=== PATIENT | male | born 1945 | race Caucasian/White ===

== ENCOUNTER → 2016-08-19 | Outpatient (CLI) | payer MEDICARE | END | disposition home or self-care (01) | LOC: RAD 10:03 | PROVIDERS: ATTEND Neurological Surgery | DX: M50.30 Other cervical disc degeneration, unspecified cervical region (principal); M41.84 Other forms of scoliosis, thoracic region; M47.893 Other spondylosis, cervicothoracic region; M47.897 Other spondylosis, lumbosacral region; M48.02 Spinal stenosis, cervical region | CPT/HCPCS: 72050; 72082 ==

== ENCOUNTER → 2016-12-16 | Outpatient (CLI) | payer MEDICARE ==
[~2016-12-16] MED LIST: ASPI-496 PO; LEVO125T5 PO; MAGN400T7 PO; NEBI5TAB2 PO; PRAV20TA2 PO; TAMS0.4C2 PO; [UNRECOGNIZED DRUG - OTHER] PO
[2016-12-16 11:32] LABS: HEMATOCRIT 48.5 % (39.2-51.8); HEMOGLOBIN 16.8 g/dL (13.7-18.0); WHITE BLOOD COUNT 5.9 x10^3/uL (3.4-10)
[2016-12-16 11:43] LABS: ASPARTATE AMINO TRANSFERASE 34 U/L (15-37); BLOOD UREA NITROGEN 19 mg/dL (7-18)
== END | disposition home or self-care (01) ==
LOC: STAR 10:17
PROVIDERS: ATTEND Neurological Surgery
DX: Z01.818 Encounter for other preprocedural examination (principal); M47.892 Other spondylosis, cervical region; R79.1 Abnormal coagulation profile
CPT/HCPCS: 36415; 71020; 80053; 85025; 85610; 85730

== ENCOUNTER 2016-12-24 08:39 | Inpatient (IN) | payer MEDICARE ==
[~2016-12-24] VITALS: Ht 165.1 cm; Wt 86.1 kg
[~2016-12-24 08:39] MED LIST changes: +BACITRACIN 50,000 UNIT ONE; +BUPIVACAINE/PF 0.5% ONE; +EPINEPHRINE 1 MG/ML, 1ML ONE; +THROMBIN 20,000 UNIT VIAL TP ONE
[2016-12-24] MEDS ORDERED: LACTATED RINGERS 1,000 ML IV SCH (09:03)
[2016-12-24 09:05] VITALS: BP 137/87
[2016-12-24] MEDS ORDERED: LIDOCAINE 1%, 2ML SQ PRN (09:30)
[2016-12-24] MEDS ORDERED: ONDANSETRON 2MG/ML, 2ML ONE (11:03)
[2016-12-24] MEDS ORDERED: SUCCINYLCHOLINE 20 MG/ML, 10ML ONE (11:03)
[2016-12-24] MEDS ORDERED: HYDROmorphone 1 MG/ML, 1ML ONE (11:03)
[2016-12-24] MEDS ORDERED: DEXAMETHASONE 4 MG/ML, 5ML ONE (11:03)
[2016-12-24] MEDS ORDERED: FENTANYL PF 250 MCG/5ML ONE (11:03)
[2016-12-24] MEDS ORDERED: LIDOCAINE PF 2%, 5ML ONE (11:03)
[2016-12-24] MEDS ORDERED: ROCURONIUM 10 MG/ML ONE (11:03)
[2016-12-24] MEDS ORDERED: METOCLOPRAMIDE 5 MG/ML, 2ML ONE (11:03)
[2016-12-24] MEDS ORDERED: CEFAZOLIN 1,000 MG ONE (11:03)
[2016-12-24] MEDS ORDERED: PROPOFOL 100 ML ONE (11:27)
[2016-12-24] MEDS ORDERED: ONDANSETRON 2MG/ML, 2ML IVPush PRN (12:00)
[2016-12-24] MEDS ORDERED: LABETALOL 5MG/ML, 20ML IV PRN (12:00)
[2016-12-24] MEDS ORDERED: FENTANYL PF 100 MCG/2ML IV PRN (12:00)
[2016-12-24] MEDS ORDERED: OXYcodone 5 MG/5 ML ORAL.SOL UDC PO PRN (12:00)
[2016-12-24] MEDS ORDERED: ACETAMINOPHEN 325 MG TABLET PO PRN (12:00)
[2016-12-24] MEDS ORDERED: MIDAZOLAM 1 MG/ML, 2ML IV PRN (12:00)
[2016-12-24] MEDS ORDERED: HYDROmorphone 1 MG/ML, 1ML IV PRN (12:00)
[2016-12-24] MEDS ORDERED: hydrALAzine 20 MG/ML, 1ML IV PRN (12:00)
[2016-12-24] MEDS ORDERED: DIAZEPAM 5 MG/ML, 2ML IVPush PRN (12:00)
[2016-12-24] MEDS ORDERED: PROMETHAZINE 25 MG/ML, 1ML IV PRN (12:00)
[2016-12-24] MEDS ORDERED: OXYcodone 5 MG/5 ML ORAL.SOL UDC ONE (14:08)
[2016-12-24] MEDS ORDERED: ACETAMINOPHEN 650 MG/20.3 ML UDC ONE (14:08)
[2016-12-24] MEDS ORDERED: FENTANYL PF 100 MCG/2ML ONE (14:08)
[2016-12-24] MEDS ORDERED: ONDANSETRON 2MG/ML, 2ML IV PRN (16:00)
[2016-12-24] MEDS ORDERED: morphine SULFATE 10 MG/ML, 1ML IV PRN (16:00)
[2016-12-24] MEDS ORDERED: HYDROcodone/APAP 10/325 MG TABLET PO PRN (16:00)
[2016-12-24] MEDS ORDERED: METHOCARBAMOL 1,000 MG in DEXTROSE 5% 100 ML IV ONE (16:00)
[2016-12-24] MEDS ORDERED: DIPHENHYDRAMINE 50 MG/ML, 1ML IM PRN (16:00)
[2016-12-24] MEDS: NS + 20MEQ KCL 1,000 ML IV SCH (16:00)
[2016-12-24] MEDS ORDERED: MAGNESIUM HYDROXIDE 8%, 30ML UDC PO PRN (16:00)
[2016-12-24] MEDS ORDERED: DIPHENHYDRAMINE 50 MG CAPSULE PO PRN (16:00)
[2016-12-24] MEDS ORDERED: CEFAZOLIN PMX 1GM/50ML 50 ML IVPB SCH (16:00)
[2016-12-24] MEDS ORDERED: METHOCARBAMOL 750 MG in DEXTROSE 5% 100 ML IV SCH (16:00)
[2016-12-24] MEDS ORDERED: HYDROcodone/APAP 5/325 TABLET PO PRN (16:00)
[2016-12-24] MEDS ORDERED: BISACODYL 10 MG SUPP PR PRN (16:00)
[2016-12-24] MEDS ORDERED: METHOCARBAMOL 750 MG TABLET PO SCH (16:00)
[2016-12-24] MEDS ORDERED: OXYcodone/APAP 10/325MG TABLET PO PRN (16:30)
[2016-12-24] MEDS: CEFAZOLIN PMX 1GM/50ML 50 ML IVPB SCH (18:29)
[2016-12-24 20:06] VITALS: BP 118/73
[2016-12-24] MEDS ORDERED: PRAVASTATIN 20 MG TABLET PO SCH (21:00)
[2016-12-24] MEDS ORDERED: ZOLPIDEM 5MG TABLET PO PRN (21:00)
[2016-12-24 23:57] VITALS: BP 131/82
[2016-12-25] MEDS: NEBIVOLOL HCL 5 MG TABLET PO SCH ×2 (00:12→08:28)
[2016-12-25] MEDS: MAGNESIUM OXIDE 400 MG TABLET PO SCH ×2 (00:13→08:28)
[2016-12-25] MEDS: TAMSULOSIN 0.4 MG CAP.ER.24H PO SCH ×2 (00:13→08:28)
[2016-12-25] MEDS: METHOCARBAMOL 750 MG in DEXTROSE 5% 100 ML IV SCH ×2 (00:13→08:26)
[2016-12-25] MEDS: CEFAZOLIN PMX 1GM/50ML 50 ML IVPB SCH ×2 (03:30→07:28)
[2016-12-25 03:56] VITALS: BP 135/77
[2016-12-25] MEDS: NS + 20MEQ KCL 1,000 ML IV SCH (04:30)
[2016-12-25] MEDS ORDERED: NEBIVOLOL HCL 5 MG TABLET PO SCH (06:00)
[2016-12-25] MEDS ORDERED: LEVOTHYROXINE 125 MCG TABLET PO SCH (06:00)
[2016-12-25 07:52] VITALS: BP 133/80
[2016-12-25] MEDS ORDERED: SENNA/DOCUSATE TABLET PO SCH (09:00)
[2016-12-25] MEDS ORDERED: MAGNESIUM OXIDE 400 MG TABLET PO SCH (09:00)
[2016-12-25] MEDS ORDERED: TAMSULOSIN 0.4 MG CAP.ER.24H PO SCH (09:00)
[2016-12-25 10:45] VITALS: BP 122/72
[2016-12-25] MEDS ORDERED: METH750T87 PO (11:44)
[2016-12-25] MEDS ORDERED: METH4TAB2 PO (11:45)
[2016-12-25] MEDS ORDERED: HYDR-3240 PO (11:45)
[2016-12-25] MEDS ORDERED: SENN1TAB7 PO (11:46)
[2016-12-25] MEDS ORDERED: CALC200T3 PO (11:48)
[2016-12-25] MEDS ORDERED: CHOL100011 PO (11:49)
[2016-12-27] MEDS ORDERED: METHOCARBAMOL 750 MG TABLET PO SCH (06:00)
== END 2016-12-25 11:44 | disposition home or self-care (01) | DRG 472 ==
LOC: INTOOBSV 08:39 → ORIP 08:39 → 4NOR 15:12 → OBSVTOIN 12-25 11:05
PROVIDERS: ADMIT Neurological Surgery; ATTEND Neurological Surgery
PROC: 0RB30ZZ Excision of Cervical Vertebral Disc, Open Approach (ICD-10-PCS; principal; 2016-12-25)
PROC: 0RG20A0 Fusion of 2 or more Cervical Vertebral Joints with Interbody Fusion Device, Anterior Approach, Anterior Column, Open Approach (ICD-10-PCS; 2016-12-25)
PROC: 4A1134G Monitoring of Peripheral Nervous Electrical Activity, Intraoperative, Percutaneous Approach (ICD-10-PCS; 2016-12-25)
DX: M48.02 Spinal stenosis, cervical region (principal); G95.9 Disease of spinal cord, unspecified; I10 Essential (primary) hypertension; E03.9 Hypothyroidism, unspecified; Z86.73 Personal history of transient ischemic attack (TIA), and cerebral infarction without residual deficits
CPT/HCPCS: 36415; 72040; 86850; 86900; C1713; G0378; J0171; J0690; J1100; J1170; J2405; J2704; J3010; J3490; J0330; J2765; J2800; J7120